=== PATIENT | female | born 1990 | race Caucasian/White ===

== ENCOUNTER 2016-08-13 20:34 | Emergency (ER) | payer BC ==
[2016-08-13] MEDS ORDERED: DEXAMETHASONE SOD PHOS 10 MG/1 ML VIAL ONE (23:57)
[2016-08-14 00:21] LABS: ABSOLUTE NEUTROPHIL COUNT 4.8 K/mm3 (1.8-7.7); BASO % 0.4 % (0.2-1.0); EOS % 0.5 % (0.9-2.9); HEMATOCRIT 40.1 % (37.0-47.0); HEMOGLOBIN 13.6 gm/l (12.0-16.0); IMM NEUT% 0.1 % (0-1); LYMPH # 2.3 (1.0-4.8); LYMPH % 30.7 % (15-45); MEAN CELL VOLUME 85.7 fl (81.0-99.0); MEAN CORPUSCULAR HEMOGLOBIN 29.1 pg (27.0-31.0); MEAN CORPUSCULAR HGB CONC 33.9 g/dl (33.0-37.0); MEAN PLATELET VOLUME 12.8 fl (7.4-10.4); MONO # 0.3 (0.0-0.8); MONO % 4.3 % (4-12); PLATELET COUNT 139 K/mm3 (130-400); RED CELL DISTRIBUTION WIDTH 12.9 % (11.5-14.5)
[2016-08-14 00:46] LABS: ALB/GLOB RATIO 1.5 (>1.0); ALBUMIN 4.5 gm/dL (3.5-5.7); ALT/SGPT 11 U/L (7-52); BLOOD UREA NITROGEN 17 mg/dL (7-25); BUN/CREATININE RATIO 19 (6-20); C-REACTIVE PROTEIN < 0.3 mg/dl (<1.0); CALCIUM 9.7 mg/dL (8.6-10.3); GLOMERULAR FILTRATION RATE 76 mL/min (60-116)
[2016-08-14 00:50] LABS: MONO TEST NEGATIVE (NEGATIVE)
== END 2016-08-14 02:01 | disposition home or self-care (01) ==
LOC: ED 20:34
DX: M54.2 Cervicalgia (principal); R59.9 Enlarged lymph nodes, unspecified
CPT/HCPCS: 86141; 85025; 82550; 80053; 86308; 85651; 87880; 99283 ×2; J1100